=== PATIENT | female | born 1930 | race Caucasian/White ===

== ENCOUNTER 2016-11-10 22:37 | Inpatient (IN) | payer SELFPAY ==
[~2016-11-10] VITALS: Ht 154.9 cm; Wt 65.9 kg
--- NOTE | 2016-11-10 22:55 | NUR ---
To bed 6 a 86 yo female bibfamily with c/o of general abdl pain, tender upon palpation with fever at 101F oral temp, reports nausea with no vomiting for 2 days. Patient is aaox2-3. Per family, patient was ambulatory but has now unable to walk by herself. VSS. Breathing even and unlabored. Nondiaphoretic. Cardiac monitoring on. Gowned. Initiated comfort measures. Awaiting for er md wilburn.
--- NOTE | 2016-11-10 23:00 | NUR ---
collected urine via clean catch, sent to lab.
--- NOTE | 2016-11-10 23:15 | NUR ---
Dr Horowitz at bedside for eval.
[2016-11-10] MEDS ORDERED: ACETAMINOPHEN 325 MG TABLET PO ONE (23:30)
[2016-11-10] MEDS ORDERED: MORPHINE SULFATE INJ 2 MG/ML DISP.SYRIN IV ONE (23:30)
[2016-11-10] MEDS ORDERED: ONDANSETRON HCL/PF 4 MG/2 ML VIAL IVP ONE (23:30)
[2016-11-10] MEDS ORDERED: IV NS 0.9% 500 ML BAG IV ONE (23:30)
--- NOTE | 2016-11-10 23:30 | NUR ---
started a saline lock on the left hand g20.+
[2016-11-10 23:43] LABS: BASOPHILS # (AUTO) 0.1 /CMM (0.0-0.2); BASOPHILS % (AUTO) 0.3 % (0.0-2.0); EOSINOPHILS % (AUTO) 0.1 % (0.0-6.0); HEMATOCRIT 38 % (33-45); HEMOGLOBIN 12.7 g/dL (11.5-14.8); LYMPHOCYTES # (AUTO) 0.6 /CMM (0.8-4.8); LYMPHOCYTES % (AUTO) 2.9 % (20.0-44.0); MEAN CORPUSCULAR HEMOGLOBIN 32 PG (26.0-33.0); MEAN CORPUSCULAR HGB CONC 33 g/dl (31.0-36.0); MEAN CORPUSCULAR VOLUME 95 fL (82-100); NEUTROPHILS # (AUTO) 18.1 /CMM (1.8-8.9); NEUTROPHILS % (AUTO) 91.7 % (43.0-81.0); PLATELET COUNT (AUTO) 302 /CMM (150-450); RDW COEFFICIENT OF VARIATION 14.1 (11.5-15.0); RED BLOOD CELL COUNT(AUTO) 4.02 MIL/uL (4.0-5.2); WHITE BLOOD COUNT (AUTO) 19.7 K/uL (4.3-11.0)
[2016-11-10 23:44] LABS: APPEARANCE,URINE TURBID (CLEAR); BILIRUBIN,URINE NEGATIVE (NEGATIVE); BLOOD, URINE 1+ Ery/uL (NEGATIVE); COLOR,URINE YELLOW (YELLOW); KETONES,URINE NEGATIVE (NEGATIVE); LEUKOCYTE ESTERASE ,URINE 1+ (NEGATIVE); NITRITE, URINE NEGATIVE (NEGATIVE); PH,URINE 8.5 (5.0-8.0); PROTEIN,URINE 2+ mg/dl (NEGATIVE); UGLUCOSE NEGATIVE (NEGATIVE); UROBILINOGEN,URINE 0.2 EU/dL (0.2)
[2016-11-10] MEDS ORDERED: ACETAMINOPHEN ES 500 MG TABLET ONE (23:50)
[2016-11-10] MEDS ORDERED: IV SET PRIMARY 1 EA INFUS.SET MC ONE (23:50)
[2016-11-10] MEDS ORDERED: MORPHINE SULFATE INJ 2 MG/ML DISP.SYRIN ONE (23:50)
[2016-11-10] MEDS ORDERED: IV NS 0.9% 1,000 ML ONE (23:50)
[2016-11-10] MEDS ORDERED: ONDANSETRON HCL/PF 4 MG/2 ML VIAL ONE (23:50)
[2016-11-10 23:51] LABS: ADD URINE CULTURE YES; BACTERIA,URINE Few /HPF (None Seen); RBC,URINE 0-3 /HPF (0-2); SQUAMOUS EPITHELIAL CELL,UR Few /HPF (None Seen); WBC,URINE 51-80 /HPF (0-3)
[2016-11-10 23:54] LABS: CALCIUM, SERUM 8.6 mg/dL (8.5-10.1); CARBON DIOXIDE 32 mmol/L (21-32); CHLORIDE 97 mmol/L (98-107); CREATININE 0.9 mg/dL (0.6-1.3); GLUCOSE 113 mg/dL (74-106); POTASSIUM 3.5 mmol/L (3.5-5.1); SODIUM SERUM 136 mmol/L (136-145); UREA NITROGEN, BLOOD 13 mg/dL (7-18)
[2016-11-11] VITALS (7 sets, daily range): BP systolic 102–117; BP diastolic 50–64
[2016-11-11] LABS: INR 1.03 (0.87-1.13)
[2016-11-11 00:01] LABS: ALANINE AMINOTRANSFERASE 19 U/L (12-78); ALBUMIN 3.1 g/dL (3.4-5.0); ALKALINE PHOSPHATASE 72 U/L (46-116); ASPARTATE AMINOTRANSFERASE 18 U/L (15-37); BILIRUBIN,DIRECT 0.1 mg/dL (0.0-0.2); BILIRUBIN,TOTAL 0.6 mg/dL (0.2-1.0); LACTIC ACID 1.6 mmol/L (0.4-2.0); LIPASE 106 U/L (73-393); TOTAL PROTEIN, SERUM 6.9 g/dL (6.4-8.2)
[2016-11-11 00:02] LABS: TROPONIN I < 0.017 ng/mL (0.00-0.056)
--- NOTE | 2016-11-11 00:10 | NUR ---
patient to ct.
--- NOTE | 2016-11-11 00:30 | NUR ---
Back from ct.
[2016-11-11] MEDS ORDERED: CEFTRIAXONE 1GM BAG (ER ONLY) 1 GM/50 ML PIGGYBACK IV ONE (02:00)
[2016-11-11] MEDS ORDERED: CEFTRIAXONE 1GM BAG (ER ONLY) 50 ML IV ONE (02:02)
[2016-11-11] MEDS ORDERED: IV SET PRIMARY PUMP SET 1 EA INFUS.SET MC ONE ×2 (02:02→03:48)
--- NOTE | 2016-11-11 02:31 | NUR ---
Report given to Nicole SANABRIA for [facility]ont.
--- NOTE | 2016-11-11 02:31 | NUR ---
[facility] DR. PAPITO CHRISTINE.
--- NOTE | 2016-11-11 03:00 | NUR ---
Patient transported to room 309-2, no incident noted.
[2016-11-11] MEDS ORDERED: MORPHINE SULFATE INJ 2 MG/ML DISP.SYRIN IV PRN (03:30)
[2016-11-11] MEDS ORDERED: ENOXAPARIN SODIUM 40 MG/0.4 ML DISP.SYRIN SQ SCH (03:30)
[2016-11-11] MEDS ORDERED: ONDANSETRON HCL/PF 4 MG/2 ML VIAL IVP PRN (03:30)
[2016-11-11] MEDS ORDERED: CEFTRIAXONE 1 G in IV D5W 50 ML IV SCH (03:30)
[2016-11-11] MEDS ORDERED: Z GUARD REMEDY 2 OZ OINT TP PRN (03:30)
[2016-11-11] MEDS ORDERED: ZOLPIDEM TARTRATE 5 MG TABLET PO PRN (03:30)
--- NOTE | 2016-11-11 03:30 | NUR ---
MS RN NOTE RECEIVED PATIENT AWAKE ALERT AND ORIETNED VIA [facility] FROM ER. DAUGHTER AT BEDSIDE. NO RESPIRATORY DISTRESS OR PAIN NOTED. IV SITE TO RIGHT HAND INTACT WITH NO REDNESS OR INFILTRATION NOTED. DAUGHTER IS BRINGING ALL BELONGINGS HOME. PATIENT AND DAUGHTER STATE THAT SHE DOES NOT TAKE ANY MEDICINE. SHE IS NORMALLY ABLE TO AMBULATE AT HOME, BUT IS FEELING VERY WEAK AT THIS TIME AND UNABLE TO AMBULATE WITHOUT ASSISTANCE. SKIN CLEAN, DRY AND INTACT. NO BREAKDOWN NOTED. MILD BRUISING NOTED TO BLE. ORDERS RECEIVED AND CARRIED OUT. GAVE PATIENT SANDWICH AND JUICE REQUESTED. ORIENTED TO ROOM AND TO UNIT. BED LOCKED AND IN LOWEST POSITION. SIDE RAILS UP, CALL LIGHT ITHIN REACH. WILL CONTINUE TO MONITOR.
[2016-11-11] MEDS ORDERED: IV NS 0.9% 1,000 ML ONE (03:48)
--- NOTE | 2016-11-11 06:27 | NUR ---
MS RN NOTE PATIENT KEPT CLEAN, DRY AND COMFORTABLE. IV FLUIDS RUNNING ORDERED. IV SITE INTACT, WITH NO REDNESS NOTED. WILL ENDORSE TO DAY SHIFT FOR ANUPAMA.
--- NOTE | 2016-11-11 07:30 | NUR ---
MS RN RECEIVED ON BED, AWAKE,ALERT,ORIENTED X3, NOT IN ANY FORM OF DISTRESS, RESPIRATIONS EVEN AND UNLABORED,NO SOB NOTED, DAUGHTER AT BEDSIDE, ALL NEEDS ATTENDED.
--- NOTE | 2016-11-11 08:30 | NUR ---
ms molina breakfast served,due meds given,tolerated well.
[2016-11-11] MEDS: PANTOPRAZOLE 40 MG TABLET.DR PO SCH (08:43)
[2016-11-11] MEDS: ENOXAPARIN SODIUM 30 MG/0.3 ML DISP.SYRIN SQ SCH (08:44)
--- NOTE | 2016-11-11 09:30 | NUR ---
ms rn was seen by dr. camara, no order at this time.
[2016-11-11] MEDS: ACETAMINOPHEN 325 MG TABLET PO PRN (11:23)
--- NOTE | 2016-11-11 15:00 | NUR ---
ms rn on bed,no distress ,family on bedside.
--- NOTE | 2016-11-11 18:00 | NUR ---
MS RN GOT ORDER FROM DR. GONZALES, CEPACOL WILL BE GIVEN TO PATIENT.
--- NOTE | 2016-11-11 18:39 | NUR ---
MS RN ON BED, NO CHANGE OF CONDITION, FAMILY AT BEDSIDE.
[2016-11-11] MEDS ORDERED: MENTHOL/CETYLPYRD (CEPACOL) 1 LOZ LOZENGE PO PRN (19:00)
[2016-11-11] MEDS: IV NS 0.9% 1,000 ML IV PRN (19:37)
--- NOTE | 2016-11-11 20:00 | NUR ---
RECEIVED PATIENT IN BED, RESTING COMFORTABLY, AROUSEABLE BY VOICE AND TOUCH, ALERT AN ORIENTED X3, TELUGU SPEAKING ONLY, NO DISTRESS, ON 2LPM VIA NC, O2 SAT 96%, DENIES ANY PAIN AT THIS TIME, RIGHT HAND PERIPHERAL LINE IS PATENT AND INFUSING WELL, ABLE TO USE BEDSIDE COMMODE WITH 2 PERSON ASSIST. NEEDS ATTENDED, CALL LIGHT WITHIN REACH, FAMILY MEMBERS AT THE BEDSIDE.
[2016-11-11] MEDS ORDERED: SECONDARY IV SET 1 EA INFUS.SET MC ONE (22:58)
--- NOTE | 2016-11-12 00:30 | NUR ---
RN OPEN NOTES RECEIVED PATIENT FROM [facility], AWAKE IN BED WITH SON AT BEDSIDE. A/O X2. NO SIGNS OF DISTRESS OR DISCOMFORT. BREATHING EVEN AND UNLABORED. ON 2LPM 02 VIA NC. IV ACCESS IN R HAND WITH NS INFUSING, PATENT AND INTACT, NO SIGNS OF REDNESS OR INFILTRATION. DENIES ANY PAIN AT THIS TIME. BED IN LOW LOCKED POSITION WITH SIDE RAILS X2. CALL LIGHT WITHIN REACH. WILL CONTINUE TO MONITOR.
--- NOTE | 2016-11-12 00:37 | NUR ---
PATIENT GIVEN TO ESTEPHANIE, REPORT GIVEN.
[2016-11-12] MEDS: CEFTRIAXONE 1 G in IV D5W 50 ML IV SCH (01:31)
[2016-11-12 06:50] LABS: BASOPHILS % (AUTO) 0.2 % (0.0-2.0); EOSINOPHILS # (AUTO) 0.1 /CMM (0.0-0.7); EOSINOPHILS % (AUTO) 0.8 % (0.0-6.0); HEMATOCRIT 33 % (33-45); HEMOGLOBIN 11.4 g/dL (11.5-14.8); LYMPHOCYTES % (AUTO) 7.8 % (20.0-44.0); MEAN CORPUSCULAR HEMOGLOBIN 33 PG (26.0-33.0); MEAN CORPUSCULAR HGB CONC 34 g/dl (31.0-36.0); MEAN CORPUSCULAR VOLUME 96 fL (82-100); MONOCYTES # (AUTO) 0.8 /CMM (0.1-1.30); MONOCYTES % (AUTO) 6.7 % (2.0-12.0); NEUTROPHILS # (AUTO) 10.7 /CMM (1.8-8.9); NEUTROPHILS % (AUTO) 84.5 % (43.0-81.0); PLATELET COUNT (AUTO) 280 /CMM (150-450); RDW COEFFICIENT OF VARIATION 14.1 (11.5-15.0); RED BLOOD CELL COUNT(AUTO) 3.48 MIL/uL (4.0-5.2); WHITE BLOOD COUNT (AUTO) 12.6 K/uL (4.3-11.0)
--- NOTE | 2016-11-12 06:54 | NUR ---
RN CLOSING NOTES PATIENT RESTING IN BED WITH SON AT BEDSIDE. A/O X2. NO SIGNS OF DISTRESS OR DISCOMFORT. BREATHING EVEN AND UNLABORED. ON 2LPM 02 VIA NC. IV ACCESS IN R HAND WITH NS INFUSING, PATENT AND INTACT, NO SIGNS OF REDNESS OR INFILTRATION. DENIES ANY PAIN AT THIS TIME. ALL NEEDS MET. NO SIGNIFICANT CHANGES THROUGH THE NIGHT. KEPT CLEAN DRY AND COMFORTABLE. BED IN LOW LOCKED POSITION WITH SIDE RAILS X2. CALL LIGHT WITHIN REACH. WILL ENDORSE TO AM SHIFT FOR ANUPAMA.
[2016-11-12 07:13] LABS: ALBUMIN 2.4 g/dL (3.4-5.0); BILIRUBIN,TOTAL 0.2 mg/dL (0.2-1.0); CALCIUM, SERUM 8.3 mg/dL (8.5-10.1); CREATININE 0.7 mg/dL (0.6-1.3); MAGNESIUM 1.8 mg/dL (1.8-2.4); PHOSPHORUS 3.9 mg/dL (2.5-4.9); POTASSIUM 3.9 mmol/L (3.5-5.1); TOTAL PROTEIN, SERUM 5.2 g/dL (6.4-8.2)
[2016-11-12 07:24] LABS: THYROID STIMULATING HORMONE 4.199 uIU/mL (0.358-3.74)
--- NOTE | 2016-11-12 07:40 | NUR ---
RECEIVED PT. IN AM,ORIENTED X 2-3.NO COMPLAINTS,IV INFUSING.DTR. AT BEDSIDE.
[2016-11-12 08:00] VITALS: BP 105/58
[2016-11-12] MEDS: PANTOPRAZOLE 40 MG TABLET.DR PO SCH (09:54)
[2016-11-12] MEDS: IV NS 0.9% 1,000 ML IV PRN (09:54)
[2016-11-12] MEDS: ENOXAPARIN SODIUM 30 MG/0.3 ML DISP.SYRIN SQ SCH (09:54)
[2016-11-12] MEDS ORDERED: POLYVINYL ALCOHOL 15 ML BOTTLE EACHEYE PRN (13:30)
[2016-11-12 16:00] VITALS: BP 124/70
[2016-11-12] MEDS ORDERED: POLYETHYLENE GLYCOL 3350 17 GM POWD.PACK PO PRN (16:00)
--- NOTE | 2016-11-12 18:30 | NUR ---
EYE DROPS STARTED FOR SWOLLEN RT. EYE,AND APPARENTLY NO BM FOR SEVERAL DAYS,RECEIVED ORDER FOR MIRALAX.
--- NOTE | 2016-11-12 19:30 | NUR ---
MS RN INITIAL NOTE RECEIVED PT AWAKE AND ALERT, ORIENTED X3, NAMIBIAN SPEAKING, ABLE TO VERBALIZE NEEDS EFFECTIVELY, NO COMPLAINT OF PAIN OR RESPIRATORY DISTRESS NOTE, PT STATES NOT HAING A BM IN SEVERAL DAYS, MIRALAX GIVEN BY AM NURSE, NO BM PRESENT OF YET, WILL CONTINUE TO MONITOR, PT WILL BE CLEAN/DRY AND COMFORTABLE, SAFETY MEASURES WILL BE OBSERVED AT ALL TIMES, NEEDS WILL BE ANTICIPATED AND ATTENDED TO DURING HOURLY ROUNDS AND NEEDED.
[2016-11-12 20:00] VITALS: BP 120/69
[2016-11-13] MEDS: CEFTRIAXONE 1 G in IV D5W 50 ML IV SCH (02:11)
[2016-11-13] MEDS: IV NS 0.9% 1,000 ML IV PRN ×2 (05:49→21:30)
--- NOTE | 2016-11-13 06:52 | NUR ---
MS RN CLOSING NOTE PT REMAINED STABLE WITH NO SIGNIFICANT CHANGES NOTED DURING LANDSCAPING SUPERVISOR, NO PAIN OR RESPIRATORY DISTRESS NOTED, CLEAN/DRY AND COMFORTABLE, SAFETY MEASURES WERE MAINTAINED AT ALL TIMES, NEEDS WERE ATTENDED TO DURING HOURLY ROUNDS, WILL ENDORSE TO INCOMING NURSE FOR ANUPAMA.
[2016-11-13 06:54] LABS: BASOPHILS % (AUTO) 0.2 % (0.0-2.0); EOSINOPHILS # (AUTO) 0.2 /CMM (0.0-0.7); EOSINOPHILS % (AUTO) 2.1 % (0.0-6.0); HEMATOCRIT 33 % (33-45); LYMPHOCYTES # (AUTO) 1.3 /CMM (0.8-4.8); LYMPHOCYTES % (AUTO) 13.8 % (20.0-44.0); MEAN CORPUSCULAR HEMOGLOBIN 32 PG (26.0-33.0); MEAN CORPUSCULAR HGB CONC 34 g/dl (31.0-36.0); MEAN CORPUSCULAR VOLUME 95 fL (82-100); MONOCYTES % (AUTO) 10.2 % (2.0-12.0); NEUTROPHILS # (AUTO) 6.9 /CMM (1.8-8.9); NEUTROPHILS % (AUTO) 73.7 % (43.0-81.0); PLATELET COUNT (AUTO) 271 /CMM (150-450); RDW COEFFICIENT OF VARIATION 13.7 (11.5-15.0); RED BLOOD CELL COUNT(AUTO) 3.45 MIL/uL (4.0-5.2); WHITE BLOOD COUNT (AUTO) 9.4 K/uL (4.3-11.0)
[2016-11-13 07:15] LABS: CALCIUM, SERUM 8.6 mg/dL (8.5-10.1); CREATININE 0.7 mg/dL (0.6-1.3)
[2016-11-13 08:00] VITALS: BP 118/56
--- NOTE | 2016-11-13 08:00 | NUR ---
MS RN NOTES RECEIVED PATIENT IN BED RESTING NO SOB OR ACUTE DISTRESS NOTED. WELSH SPEAKING, ALERT, ORIENTED X3 . IV ON RIGHTY HAND PATENT INTACT. CALL LIGHT WITHIN REACH. BED IN LOW LOCKED POSITION. WILL CONTINUE TO MONITOR.
[2016-11-13] MEDS: ENOXAPARIN SODIUM 30 MG/0.3 ML DISP.SYRIN SQ SCH (08:46)
[2016-11-13] MEDS: PANTOPRAZOLE 40 MG TABLET.DR PO SCH (08:46)
[2016-11-13 16:00] VITALS: BP 136/67
--- NOTE | 2016-11-13 16:40 | NUR ---
MS RN NOTES PATIENT COMPLAINED OF CONSTIPATION AND REQUESTING FOR SUPPOSITORY. CALL PLACED TO DR. BENNETT ORDER OBTAINED FOR SUPPOSITORY FOR CONSTIPATION NOTED AND CARRIED OUT. WILL CONTINENCE TO MONITOR.
[2016-11-13] MEDS ORDERED: BISACODYL SUPP (10 MG) 10 MG/SUPP.RECT SUPP.RECT RC PRN (17:00)
[2016-11-13] MEDS: ACETAMINOPHEN 325 MG TABLET PO PRN (17:02)
--- NOTE | 2016-11-13 19:23 | NUR ---
MS RN NOTES PATIENT IN BED RESTING NO SOB OR ACUTE DISTRESS NOTED. ALL DUE MEDICATIONS GIVEN. ALL NEEDS MET. ENDORSED CARE TO PM SHIFT.
--- NOTE | 2016-11-13 19:30 | NUR ---
MS RN INITIAL NOTE RECEIVED PT SLEEPING BUT EASILY AROUSED, COMPLAINT OF MILD HEADACHE, TYLENOL GIVEN BY AM NURSE AT 1700, PT STATES NOT NEEDING ANY ADDITIONAL PAIN MEDICATION AT THIS MOMENT, NO RESPIRATORY DISTRESS NOTED DURING PHYSICAL ASSESSMENT, PT IS CLEAN/DRY AND COMFORTABLE, SAFETY MEASURES WILL BE MAINTAINED AT AL TIMES, NEEDS WILL BE ANTICIPATED AND ATTENDED TO DURING HOURLY ROUNDS AND NEEDED.
[2016-11-13 20:00] VITALS: BP 147/76
[2016-11-14] MEDS: CEFTRIAXONE 1 G in IV D5W 50 ML IV SCH (02:59)
--- NOTE | 2016-11-14 06:28 | NUR ---
MS RN CLOSING NOTE PT REMAINED STABLE DURING MANAGER SPRING, NO COMPLAINT OF PAIN OR RESPIRATORY DISTRESS NOTED, ALL NEEDS WERE MET, PT WAS ABLE TO SLEEP COMFORTABLY MOST OF THE NIGHT, FAMILY MEMBER AT BEDSIDE, SAFETY MEASURES WERE MAINTAINED AT ALL TIMES, WILL ENDORSE TO INCOMING NURSE FOR ANUPAMA.
[2016-11-14 06:38] LABS: BASOPHILS % (AUTO) 0.4 % (0.0-2.0); EOSINOPHILS # (AUTO) 0.2 /CMM (0.0-0.7); EOSINOPHILS % (AUTO) 2.1 % (0.0-6.0); HEMATOCRIT 34 % (33-45); HEMOGLOBIN 11.4 g/dL (11.5-14.8); LYMPHOCYTES # (AUTO) 1.3 /CMM (0.8-4.8); LYMPHOCYTES % (AUTO) 14.1 % (20.0-44.0); MEAN CORPUSCULAR HEMOGLOBIN 32 PG (26.0-33.0); MEAN CORPUSCULAR HGB CONC 34 g/dl (31.0-36.0); MEAN CORPUSCULAR VOLUME 96 fL (82-100); MONOCYTES # (AUTO) 0.8 /CMM (0.1-1.30); MONOCYTES % (AUTO) 8.7 % (2.0-12.0); NEUTROPHILS # (AUTO) 6.8 /CMM (1.8-8.9); NEUTROPHILS % (AUTO) 74.7 % (43.0-81.0); PLATELET COUNT (AUTO) 271 /CMM (150-450); RDW COEFFICIENT OF VARIATION 13.6 (11.5-15.0); RED BLOOD CELL COUNT(AUTO) 3.55 MIL/uL (4.0-5.2); WHITE BLOOD COUNT (AUTO) 9.2 K/uL (4.3-11.0)
[2016-11-14 07:00] LABS: CALCIUM, SERUM 8.5 mg/dL (8.5-10.1); CREATININE 0.6 mg/dL (0.6-1.3); MAGNESIUM 1.6 mg/dL (1.8-2.4); PHOSPHORUS 3.3 mg/dL (2.5-4.9); POTASSIUM 4.1 mmol/L (3.5-5.1)
[2016-11-14 08:00] VITALS: BP 139/80
--- NOTE | 2016-11-14 08:00 | NUR ---
RN NOTES PATIENT LAYING IN BED; DAUGHTER AT BEDSIDE; PATIENT TURNED & REPOSITIONED ON R SIDE; SCDs APPLIED TO BLE; NO ACUTE DISTRESS AT THIS TIME.
[2016-11-14] MEDS: PANTOPRAZOLE 40 MG TABLET.DR PO SCH (08:48)
[2016-11-14] MEDS: ENOXAPARIN SODIUM 30 MG/0.3 ML DISP.SYRIN SQ SCH (08:58)
[2016-11-14] MEDS: ACETAMINOPHEN 325 MG TABLET PO PRN (09:03)
[2016-11-14] MEDS ORDERED: LEVO750T21 PO (10:19)
[2016-11-14] MEDS ORDERED: CHOLECALCIFEROL 1,000 UNIT TABLET (VIT D3) PO SCH (10:30)
[2016-11-14] MEDS ORDERED: PROSOURCE / PROSTAT (PYXIS) 30 ML UDC GT SCH (10:30)
[2016-11-14] MEDS ORDERED: CYANOCOBALAMIN 1,000 MCG/ML VIAL SQ ONE (10:30)
[2016-11-14] MEDS ORDERED: CHOL100044 PO (10:32)
[2016-11-14] MEDS ORDERED: Nutritional Supplement GT (10:32)
[2016-11-14] MEDS ORDERED: SECONDARY IV SET 1 EA INFUS.SET MC ONE (10:39)
[2016-11-14] MEDS: Magnesium 1GM/D5W 100ML PREMIX 100 ML IV SCH ×4 (10:44→14:42)
--- NOTE | 2016-11-14 12:30 | NUR ---
PT SEEN BY CM, DISCHARGE DISCUSSED WITH PT AND HE DAUGHTER AT BEDSIDE.
[2016-11-14 16:00] VITALS: BP 108/62
--- NOTE | 2016-11-14 16:51 | NUR ---
PT DISCHARGED HOME IN STABLE CONDITION, WITH FAMILY, VIA PRIVATE CAR, PT ALERT AND ORIENTED, ABLE TO TAKE STEPS WITH FWW, NO N/V NO PAIN OR DISCOMFORT NOTED, ALL INSTRUCTIONS AND EDUCATION DONE, PT ACCOMPANIED BY CHICKEN STUFFER, LEFT HOSPITAL SAFELY. V/S BP 108/62, P 78.R 19, TEMP 97.7, O2SAT 94% IN RA PAIN 0/10
== END 2016-11-14 16:30 | disposition home health service (06) | DRG 689 ==
LOC: ER 22:40 → MED 11-11 02:44
PROVIDERS: ADMIT Nurse Practitioner Acute Care; ATTEND Family Medicine
DX: N39.0 Urinary tract infection, site not specified (principal); G92 Toxic encephalopathy; E44.0 Moderate protein-calorie malnutrition; M48.56XA Collapsed vertebra, not elsewhere classified, lumbar region, initial encounter for fracture; K57.90 Diverticulosis of intestine, part unspecified, without perforation or abscess without bleeding; K80.20 Calculus of gallbladder without cholecystitis without obstruction; R73.9 Hyperglycemia, unspecified; B96.20 Unspecified Escherichia coli [E. coli] as the cause of diseases classified elsewhere
CPT/HCPCS: 36415; 71010-TC; 80048-TC; 80053-TC; 80061-TC; 80076-TC; 81000-TC; 83605-TC; 83690-TC; 83735-TC; 84100-TC; 84443-TC; 84484-TC; 85025-TC; 85730-TC; 87040-TC; 87081-TC; 87086-TC; 87186-TC; 94799-TC; 97001-TC; 97003-TC; 97116-TC; 97530-TC; A4606; J0696; J1650; J2270; J2405; J3420; J3475; J7030; J7060; Z7610